=== PATIENT | female | born 1970 | race Caucasian/White ===

== ENCOUNTER → 2016-09-03 | Outpatient (CLI) | payer MEDICAID ==
--- NOTE | 2016-09-04 09:49 | MM ---
Reason for exam: screening (asymptomatic). Last mammogram was performed 1 year and 3 months ago. History: Patient had first child at age 36. Took hormonal contraceptives for 10 years beginning at age 20. Physical Findings: A clinical breast exam by your physician is recommended on an annual basis and results should be correlated with mammographic findings. MG 3D Screening Mammo W/Cad Bilateral CC and MLO view(s) were taken. Prior study comparison: June 14, 2015, bilateral MG screening mammo w CAD. The breast tissue is extremely dense which could obscure a lesion on mammography. No significant changes when compared with prior studies. ASSESSMENT: Benign, BI-RAD 2 RECOMMENDATION: Routine screening mammogram of both breasts in 1 year.
== END ==
LOC: RADMAMWWP 07:26
PROVIDERS: ATTEND Obstetrics & Gynecology
DX: Z12.31 Encounter for screening mammogram for malignant neoplasm of breast (principal)
CPT/HCPCS: 77063; G0202

== ENCOUNTER → 2017-04-25 | Outpatient (CLI) | payer MEDICAID ==
--- NOTE | 2017-04-25 09:20 | XR ---
EXAMINATION TYPE: XR cervical spine comp DATE OF EXAM: 04/25/2017 COMPARISON: NONE HISTORY: Chronic neck pain TECHNIQUE: Four views are submitted. FINDINGS: The odontoid is intact. There are no compression deformities. The prevertebral soft tissue structur es are within normal limits. There is an anterolisthesis of C4 on C5 of 2 mm. There is multilevel mi ld degenerative disc disease and facet arthropathy. IMPRESSION: 1. Multilevel mild degenerative disc disease with anterolisthesis of C4 on C5 by approximately 2 mm. 2. Multilevel facet arthropathy. Correlate with MRI.
== END | disposition home or self-care (01) ==
LOC: RADXRMAIN 08:34
PROVIDERS: ATTEND Internal Medicine Critical Care Medicine
DX: M50.30 Other cervical disc degeneration, unspecified cervical region (principal); M43.12 Spondylolisthesis, cervical region; M46.92 Unspecified inflammatory spondylopathy, cervical region
CPT/HCPCS: 72050

== ENCOUNTER → 2017-04-26 | Outpatient (CLI) | payer MEDICAID ==
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
== END | disposition home or self-care (01) ==
LOC: RADMRIMAIN 15:35
PROVIDERS: ATTEND Internal Medicine Critical Care Medicine
DX: M50.30 Other cervical disc degeneration, unspecified cervical region (principal)
CPT/HCPCS: 72156; A9581

== ENCOUNTER → 2018-08-14 | Outpatient (CLI) | payer MEDICAID ==
--- NOTE | 2018-08-15 12:38 | MM ---
Reason for exam: screening (asymptomatic). Last mammogram was performed 1 year and 11 months ago. History: Patient had first child at age 36. Took hormonal contraceptives for 10 years beginning at age 20. Physical Findings: A clinical breast exam by your physician is recommended on an annual basis and results should be correlated with mammographic findings. MG 3D Screening Mammo W/Cad Bilateral CC and MLO view(s) were taken. Prior study comparison: September 03, 2016, bilateral MG 3d screening mammo w/cad. June 14, 2015, bilateral MG screening mammo w CAD. The breast tissue is heterogeneously dense. This may lower the sensitivity of mammography. There is no discrete abnormality. No significant changes when compared with prior studies. ASSESSMENT: Negative, BI-RAD 1 RECOMMENDATION: Routine screening mammogram of both breasts in 1 year.
== END | disposition home or self-care (01) ==
LOC: RADMAMWWP 07:56
PROVIDERS: ATTEND Internal Medicine Critical Care Medicine
DX: Z12.31 Encounter for screening mammogram for malignant neoplasm of breast (principal)
CPT/HCPCS: 77063; 77067

== ENCOUNTER → 2018-08-27 | Outpatient (CLI) | payer MEDICAID ==
[2018-08-27 08:50] VITALS: BP 121/79; PULSE 88; RESP 18; TEMP 98.4; BMI 21.1
--- NOTE | 2018-08-27 09:16 | P.HPOB ---
History of Present Illness H&P Date: 08/27/18 Chief Complaint: The patient is here for her routine gynecologic exam. This is a 48-year-old with an LMP of 08/09/2018. The patient is here to establish with this office. She is without gynecologic complaints. It armand been about 2 years since her last pelvic exam. Menses a regular every 24 days typically lasting 6 or 7 days. She is using condoms for control and is not interested in any other form of control at this time. Review of Systems The patient's weight has been stable over the last year. She denies respiratory, cardiac, or G.I. problems. 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 History of Any Multi-Drug Resistant Organisms: None Reported Past Surgical History: Section Additional Past Surgical History / Comment(s): [place] teeth removed. 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 - Past Family History Brother(s) Family Medical History: Diabetes Mellitus Grandmother Family Medical History: Dementia Medications and Allergies Home Medications Medication Instructions Recorded Confirmed Type Acetaminophen Tab [Tylenol Tab] 500 mg PO Q6H 08/27/18 08/27/18 History Cholecalciferol (Vitamin D3) 2,000 unit PO DAILY 08/27/18 08/27/18 History [Vitamin D3] Ibuprofen [Motrin Ib] 200 mg PO PRN 08/27/18 History Multivit with Calcium,Iron,Min 1 each PO DAILY 08/27/18 08/27/18 History [Women's Multivitamin] Allergies Allergy/AdvReac Type Severity Reaction Status Date / Time azithromycin [From Zithromax] AdvReac Severe rash,vomiti Unverified 08/27/18 08:42 ng terbutaline AdvReac Severe rash,vomiti Unverified 08/27/18 08:42 ng,hives Exam Vital Signs Temp Pulse Resp BP Pulse Ox 08/27/18 08:46 98.4 F 88 18 121/79 100 Intake and Output 08/26/18 08/27/18 08/27/18 22:59 06:59 14:59 Other: Weight 48.988 kg Height 5'0", weight 108 pounds, BMI 21.1. This is a well-developed well-nourished white female who is alert and oriented times 3 in no acute distress. HEENT: Within normal limits. NECK: Supple without mass or thyromegaly. CHEST AND LUNGS: Clear to auscultation. HEART: Regular rate and rhythm. BREASTS: Are without mass or discharge. AXILLARY EXAM: Negative for adenopathy. BACK: Negative for CVA tenderness. ABDOMEN: Soft, nontender, without palpable masses. PELVIC EXAM: Normal external genitalia. Cervix and vagina appear normal. The cervix appears nulliparous. There is no unusual discharge. There is no evidence of prolapse. The uterus is midposition, nongravid size and nontender. There are no palpable adnexal masses or tenderness. RECTAL EXAM: negative for mass or tenderness and is negative for occult blood. EXTREMITIES: Nontender. IMPRESSION: 1. 48-year-old female with normal gynecologic exam using condoms for control. PLAN: 1. Pap smear was performed. 2. Self breast awareness was discussed with the patient. 3. Screening mammogram was done on 08/14/18 and was benign. She will repeat this in one to 2 years 4. Osteoporosis prevention was discussed. I have stressed the importance of adequate calcium, vitamin D and regular exercise. Recommended amounts of calcium and vitamin D were also discussed. 5. She was advised to return in one year for her annual well woman exam.
--- NOTE | 2018-09-02 12:18 | P.PN ---
Progress Note - Text Progress Note Date: 09/02/18 OUTPATIENT FOLLOW-UP NOTE TEST(S)/RESULTS: negative Pap smear on 08/27/2018. METHOD OF NOTIFICATION: the patient was notified by phone. PATIENT COMMENTS: the patient is happy to hear this result. DIAGNOSIS: negative Pap smear DISCUSSION: PLAN: She was advised to return in one year for her annual well woman exam.
== END | disposition home or self-care (01) ==
LOC: WWCWWP 08:32
PROVIDERS: ATTEND Obstetrics & Gynecology
DX: Z53.9 Procedure and treatment not carried out, unspecified reason (principal)

== ENCOUNTER → 2019-11-25 | Outpatient (CLI) | payer BC, MEDICAID ==
[2019-11-25 11:04] LABS: Basophils # (A) 0.1 k/uL (0-0.2); Basophils % (A) 1 %; Eosinophils # (A) 0.3 k/uL (0-0.7); Eosinophils % (A) 5 %; HCT 41.3 % (34.0-46.0); HGB 13.1 gm/dL (11.4-16.0); Lymphocytes # (A) 1.7 k/uL (1.0-4.8); Lymphocytes % (A) 30 %; MCH 29.2 pg (25.0-35.0); MCHC 31.7 g/dL (31.0-37.0); MCV 92.1 fL (80.0-100.0); Mean Platelet Volume 8.6; Monocytes # (A) 0.3 k/uL (0-1.0); Monocytes % (A) 5 %; Neutrophils # (A) 3.2 k/uL (1.3-7.7); Neutrophils % (A) 57 %; Platelet Count 236 k/uL (150-450); RBC 4.49 m/uL (3.80-5.40); RDW 11.9 % (11.5-15.5); WBC 5.6 k/uL (3.8-10.6)
[2019-11-25 16:50] LABS: % Iron Saturation 15.27 (12.00-45.00); African American GFR (CKD) 88.2 (60.0-200.0); Albumin 4.5 g/dL (3.80-4.90); Albumin/Globulin Ratio 1.88 (1.60-3.17); Anion Gap 7.4 mmol/L (4.00-12.00); BUN/Creat Ratio 16.67 Ratio (12.00-20.00); Calcium 9.4 mg/dL (8.7-10.3); Carbon Dioxide 25.6 mmol/L (21.6-31.8); Chol/HDL Ratio 2.41; Globulin 2.4 g/dL (1.6-3.3); LDL Cholesterol,Calculated 71.8 mg/dL (0.0-131.0); Non-African American GFR(CKD) 76.1 (60.0-200.0); Potassium 4.6 mmol/L (3.5-5.5); Total Bilirubin 0.3 mg/dL (0.2-1.2); Total Protein 6.9 g/dL (6.2-8.2); VLDL Calculation 14.2 mg/dL (5.00-40.00)
[2019-11-25 16:57] LABS: T4, Free (Free Thyroxine) 1.1 ng/dL (0.80-1.80)
== END | disposition home or self-care (01) ==
LOC: LABWHC1 09:43
PROVIDERS: ATTEND Internal Medicine Critical Care Medicine
DX: Z00.00 Encounter for general adult medical examination without abnormal findings (principal); R53.83 Other fatigue; E55.9 Vitamin D deficiency, unspecified
CPT/HCPCS: 36415; 80053; 80061; 82306; 83540; 83550; 84439; 84443; 85025

== ENCOUNTER → 2020-03-08 | Outpatient (CLI) | payer BC ==
--- NOTE | 2020-03-09 08:44 | MM ---
Reason for exam: screening (asymptomatic). Last mammogram was performed 1 year and 7 months ago. History: Patient had first child at age 36. Took hormonal contraceptives for 10 years beginning at age 20. Physical Findings: A clinical breast exam by your physician is recommended on an annual basis and results should be correlated with mammographic findings. MG 3D Screening Mammo W/Cad Bilateral CC and MLO view(s) were taken. Prior study comparison: August 14, 2018, bilateral MG 3d screening mammo w/cad. September 03, 2016, bilateral MG 3d screening mammo w/cad. The breast tissue is extremely dense which could obscure a lesion on mammography. No significant changes when compared with prior studies. ASSESSMENT: Negative, BI-RAD 1 RECOMMENDATION: Routine screening mammogram of both breasts in 1 year. Patient should continue monthly self breast exams. A negative report should not preclude additional follow up of suspicious palpable abnormalities.
== END | disposition home or self-care (01) ==
LOC: RADMAMWWP 07:14
PROVIDERS: ATTEND Internal Medicine Critical Care Medicine
DX: Z12.31 Encounter for screening mammogram for malignant neoplasm of breast (principal)
CPT/HCPCS: 77063; 77067

== ENCOUNTER → 2020-06-08 | Outpatient (CLI) | payer OTHER ==
--- NOTE | 2020-06-08 13:30 | XR ---
Right humerus and right shoulder HISTORY: Pain, trauma 2 views of the right humerus, 3 views of the right shoulder. Bone mineralization, joint spaces and alignment are maintained. IMPRESSION: No fracture or dislocation.
--- NOTE | 2020-06-08 14:30 | XR ---
Cervical spine HISTORY: Pain, trauma 5 views of the cervical spine, correlation prior exam 04/25/2017 Facet arthropathy changes are present. No evident foraminal encroachment. Cervical vertebral bodies s how preserved height, minimal retrolisthesis grade 1 C2-3, C3-4. Prevertebral soft tissues are normal . Disc spaces are maintained. IMPRESSION: No acute fracture or subluxation. Facet arthropathy.
== END | disposition home or self-care (01) ==
LOC: RADXRMAIN 12:51
PROVIDERS: ATTEND Emergency Medicine
DX: M47.812 Spondylosis without myelopathy or radiculopathy, cervical region (principal); S43.401A Unspecified sprain of right shoulder joint, initial encounter; S40.021A Contusion of right upper arm, initial encounter
CPT/HCPCS: 72050

== ENCOUNTER → 2020-06-16 | Outpatient (CLI) | payer OTHER ==
--- NOTE | 2020-06-17 08:16 | MR ---
EXAMINATION TYPE: MR shoulder RT wo con DATE OF EXAM: 06/16/2020 COMPARISON: Radiographs 06/08/2020 HISTORY: 50 year-old female right shoulder pain, strain TECHNIQUE: Multiplanar, multisequence imaging of the right shoulder is performed without contrast. FINDINGS: Minimal intermediate signal within the intracapsular portion of the long head biceps tendon may refle ct mild tendinosis. The extracapsular portion remains appropriately situated along the bicipital groo ve with minimal tenosynovial fluid likely communicating with the shoulder joint. The subscapularis tendon is intact. Mild capsular hypertrophy at the acromioclavicular joint without significant mass effect onto the und erlying cuff. Mild effusion within the subacromial/subdeltoid bursa. There is superficial bursal sided fraying of the supraspinatus tendon along with shallow articular si ded tear anteriorly measuring 8 x 6 mm, sagittal image 22 and coronal image 13. The infraspinatus tendon remains intact. No atrophy of the rotator cuff musculature. Some degenerative signal within the superior labrum and blunting of the posterior labrum. No para lab ral cyst. No significant glenohumeral joint effusion. The glenohumeral joint itself appears intact. No Hill-Sachs deformity or os acromiale. Some mild patchy red marrow hyperplasia is noted. No suspici ous bone marrow replacement. IMPRESSION: 1. Some bursal sided fraying of the supraspinatal tendon. Additional shallow articular sided tear of the anterior supraspinatus tendon measuring 8 x 6 mm. No high-grade partial or full-thickness rotator cuff tear at this time. 2. Mild subacromial/subdeltoid bursal effusion/bursitis. 3. There seems to be some degenerative signal within the superior labrum and some blunting of the pos terior labrum. A subtle labral tear is difficult to exclude. No paralabral cyst. If concern for apryl l pathology, MR arthrogram may be considered.
== END | disposition home or self-care (01) ==
LOC: RADMRIMAIN 08:38
PROVIDERS: ATTEND Emergency Medicine
DX: M75.101 Unspecified rotator cuff tear or rupture of right shoulder, not specified as traumatic (principal); S43.401A Unspecified sprain of right shoulder joint, initial encounter

== ENCOUNTER → 2020-12-20 | Outpatient (CLI) | payer BC ==
[2020-12-20 11:07] LABS: Basophils # (A) 0.07 X 10*3/uL (0.00-0.10); Basophils % (A) 1.2 %; Eosinophils # (A) 0.34 X 10*3/uL (0.04-0.35); HCT 38.5 % (37.2-46.3); HGB 12.5 g/dL (12.0-15.0); Lymphocytes % (A) 30.2 %; MCHC 32.5 g/dL (32.0-37.0); MCV 92.5 fL (80.0-97.0); Mean Platelet Volume 11.6 fL (9.5-12.2); Monocytes # (A) 0.44 X 10*3/uL (0.20-1.00); Monocytes % (A) 7.8 %; Neutrophils # (A) 3.07 X 10*3/uL (1.80-7.70); Neutrophils % (A) 54.6 %; Platelet Count 208 X 10*3/uL (140-440); RBC 4.16 X 10*6/uL (4.10-5.20); RDW 12.4 % (11.5-14.5); WBC 5.63 X 10*3/uL (4.50-10.00)
[2020-12-20 12:22] LABS: Albumin 4.4 g/dL (3.80-4.90); Albumin/Globulin Ratio 1.69 (1.60-3.17); Anion Gap 7.7 mmol/L (4.00-12.00); Calcium 9.5 mg/dL (8.7-10.3); Carbon Dioxide 24.3 mmol/L (21.6-31.8); Chol/HDL Ratio 2.44; Globulin 2.6 g/dL (1.6-3.3); LDL Cholesterol,Calculated 72.4 mg/dL (0.0-131.0); Non-African American GFR(CKD) 87.2 (60.0-200.0); Potassium 4.1 mmol/L (3.5-5.5); Total Bilirubin 0.5 mg/dL (0.2-1.2); VLDL Calculation 19.6 mg/dL (5.00-40.00)
[2020-12-20 12:29] LABS: T4, Free (Free Thyroxine) 1.2 ng/dL (0.80-1.80)
[2020-12-20 14:53] LABS: Hemoglobin A1C 5.5 % (4.0-6.0)
== END | disposition home or self-care (01) ==
LOC: LABWHC1 07:07
PROVIDERS: ATTEND Internal Medicine Critical Care Medicine
DX: Z00.00 Encounter for general adult medical examination without abnormal findings (principal); K57.30 Diverticulosis of large intestine without perforation or abscess without bleeding; E55.9 Vitamin D deficiency, unspecified
CPT/HCPCS: 36415; 80053; 80061; 82306; 83036; 84439; 84443; 85025

== ENCOUNTER → 2021-04-27 | Outpatient (CLI) | payer BC ==
--- NOTE | 2021-05-01 11:42 | MM ---
Reason for exam: screening (asymptomatic). Last mammogram was performed 1 year and 2 months ago. History: Patient had first child at age 36. Took hormonal contraceptives for 10 years beginning at age 20. Physical Findings: A clinical breast exam by your physician is recommended on an annual basis and results should be correlated with mammographic findings. MG 3D Screening Mammo W/Cad Bilateral CC and MLO view(s) were taken. Prior study comparison: March 08, 2020, bilateral MG 3d screening mammo w/cad. August 14, 2018, bilateral MG 3d screening mammo w/cad. The breast tissue is heterogeneously dense. This may lower the sensitivity of mammography. No significant changes when compared with prior studies. ASSESSMENT: Negative, BI-RAD 1 RECOMMENDATION: Routine screening mammogram of both breasts in 1 year. Patient should continue monthly self breast exams. A negative report should not preclude additional follow up of suspicious palpable abnormalities.
== END | disposition home or self-care (01) ==
LOC: RADMAMWWP 07:00
PROVIDERS: ATTEND Internal Medicine Critical Care Medicine
DX: Z12.31 Encounter for screening mammogram for malignant neoplasm of breast (principal)
CPT/HCPCS: 77063; 77067

== ENCOUNTER → 2022-01-03 | Outpatient (CLI) | payer BC ==
[2022-01-03 10:30] LABS: Basophils # (A) 0.04 X 10*3/uL (0.00-0.10); Basophils % (A) 1.1 %; Eosinophils # (A) 0.09 X 10*3/uL (0.04-0.35); Eosinophils % (A) 2.5 %; Immature Grans, Automated 0.3 %; Lymphocytes # (A) 0.43 X 10*3/uL (0.90-5.00); MCH 29.9 pg (27.0-32.0); MCHC 33.3 g/dL (32.0-37.0); MCV 89.6 fL (80.0-97.0); Mean Platelet Volume 11.1 fL (9.5-12.2); Monocytes # (A) 0.34 X 10*3/uL (0.20-1.00); Monocytes % (A) 9.5 %; NRBC Per 100 WBC 0 /100 WBCS (0.0-0.0); Neutrophils # (A) 2.66 X 10*3/uL (1.80-7.70); Neutrophils % (A) 74.6 %; Platelet Count 187 X 10*3/uL (140-440); RBC 4.02 X 10*6/uL (4.10-5.20); RDW 12.1 % (11.5-14.5); WBC 3.57 X 10*3/uL (4.50-10.00)
[2022-01-03 11:16] LABS: ALT 33 U/L (8-44); AST 44 U/L (13-35); African American GFR (CKD) 91.7 (60.0-200.0); Albumin 4.6 g/dL (3.8-4.9); Alkaline Phosphatase 80 U/L (41-126); BUN/Creat Ratio 15.31 Ratio (12.00-20.00); Blood Urea Nitrogen 13.2 mg/dL (9.0-27.0); Calcium 9.2 mg/dL (8.7-10.3); Carbon Dioxide 25.8 mmol/L (20.0-27.5); Chloride 103 mmol/L (96-109); Chol/HDL Ratio 2.19 Ratio; Globulin 2.4 g/dL (1.6-3.3); Glucose 105 mg/dL (70-110); LDL Cholesterol,Calculated 68.3 mg/dL (0.0-131.0); Non-African American GFR(CKD) 79.1 (60.0-200.0); Potassium 4.3 mmol/L (3.5-5.5); Sodium 139 mmol/L (135-145); VLDL Calculation 12.84 mg/dL (5.00-40.00)
== END | disposition home or self-care (01) ==
LOC: LABWHC1 07:33
PROVIDERS: ATTEND Internal Medicine Critical Care Medicine
DX: Z00.00 Encounter for general adult medical examination without abnormal findings (principal); E55.9 Vitamin D deficiency, unspecified; K55.9 Vascular disorder of intestine, unspecified; M53.81 Other specified dorsopathies, occipito-atlanto-axial region
CPT/HCPCS: 36415; 80053; 80061; 82306; 83036; 84439; 84443; 85025

== ENCOUNTER → 2022-05-02 | Outpatient (CLI) | payer BC ==
--- NOTE | 2022-05-02 22:16 | MM ---
Reason for Exam: Screening (asymptomatic). Last screening mammogram was performed 12 month(s) ago. Patient History: Menarche at age 15. First Full-Term at age 36. Late child-bearing (after 30). Hormonal Contraceptives for 10 years from age 20 until age 30. Last menstrual period: 04/12/2022 Risk Values: Jennifer 5 year model risk: 1.3%. NCI Lifetime model risk: 12.1%. Prior Study Comparison: 08/14/2018 Bilateral Screening Mammogram, [facility]. 03/08/2020 Bilateral Screening Mammogram, [facility]. 04/27/2021 Bilateral Screening Mammogram, [facility]. Tissue Density: The breast tissue is extremely dense which could obscure a lesion on mammography. Findings: Analyzed By CAD. There is no suspicious group of microcalcifications or new suspicious mass in either breast. Overall Assessment: Negative, BI-RAD 1 Management: Screening Mammogram of both breasts in 1 year. 1. Patient should continue monthly self breast exams. 2. A clinical breast exam by your physician is recommended on an annual basis. 3. This exam should not preclude additional follow-up of suspicious palpable abnormalities. Electronically signed and approved by: Alix Hauser M.D. Radiologist
== END | disposition home or self-care (01) ==
LOC: RADMAMWWP 06:56
PROVIDERS: ATTEND Internal Medicine Critical Care Medicine
DX: Z12.31 Encounter for screening mammogram for malignant neoplasm of breast (principal)
CPT/HCPCS: 77063; 77067

== ENCOUNTER → 2023-01-21 | Outpatient (CLI) | payer BC ==
[2023-01-21 11:25] LABS: Basophils # (A) 0.06 X 10*3/uL (0.00-0.10); Eosinophils # (A) 0.24 X 10*3/uL (0.04-0.35); Eosinophils % (A) 4.2 %; HCT 39.8 % (37.2-46.3); HGB 13.1 d/dL (12.0-15.0); Lymphocytes # (A) 1.62 X 10*3/uL (0.90-5.00); Lymphocytes % (A) 28.3 %; MCHC 32.9 d/dL (32.0-37.0); MCV 91.1 FL (80.0-97.0); Mean Platelet Volume 11.3 FL (9.5-12.2); Monocytes # (A) 0.42 X 10*3/uL (0.20-1.00); Monocytes % (A) 7.3 %; NRBC Per 100 WBC 0 X 10*3/uL (0.00-0.01); Neutrophils # (A) 3.38 X 10*3/uL (1.80-7.70); Platelet Count 247 X 10*3/uL (140-440); RBC 4.37 X 10*6/uL (4.10-5.20); RDW 12.2 % (11.5-14.5); WBC 5.73 X 10*3/uL (4.50-10.00)
[2023-01-21 11:27] LABS: ALT 16 U/L (8-44); AST 18 U/L (13-35); Albumin 4.8 d/dL (3.8-4.9); Albumin/Globulin Ratio 1.85 Ratio (1.60-3.17); Alkaline Phosphatase 80 U/L (41-126); BUN/Creat Ratio 22.88 Ratio (12.00-20.00); Blood Urea Nitrogen 18.3 mg/dL (9.0-27.0); Calcium 9.4 mg/dL (8.7-10.3); Carbon Dioxide 24.3 mmol/L (21.6-31.8); Chloride 102 mmol/L (96-109); Chol/HDL Ratio 2.34 Ratio; Globulin 2.6 d/dL (1.6-3.3); Glucose 90 mg/dL (70-110); LDL Cholesterol,Calculated 82.8 mg/dL (0.0-131.0); Potassium 4.3 mmol/L (3.5-5.5); Sodium 139 mmol/L (135-145); T4, Free (Free Thyroxine) 1.06 ng/dL (0.80-1.80); Total Bilirubin 0.4 mg/dL (0.3-1.2); Total Protein 7.4 d/dL (6.2-8.2); VLDL Calculation 13.94 mg/dL (5.00-40.00)
== END | disposition home or self-care (01) ==
LOC: LABWHC1 07:04
PROVIDERS: ATTEND Internal Medicine Critical Care Medicine
DX: Z00.00 Encounter for general adult medical examination without abnormal findings (principal); K52.9 Noninfective gastroenteritis and colitis, unspecified; E55.9 Vitamin D deficiency, unspecified
CPT/HCPCS: 36415; 80053; 80061; 82306; 83036; 84439; 84443; 85025

== ENCOUNTER → 2023-05-28 | Outpatient (CLI) | payer BC ==
--- NOTE | 2023-05-28 22:27 | MM ---
Reason for Exam: Screening (asymptomatic). Last mammogram was performed 1 year(s) and 1 month(s) ago. Patient History: Menarche at age 15. First Full-Term at age 36. Late child-bearing (after 30). Hormonal Contraceptives for 10 years from age 20 until age 30. Last menstrual period: 05/17/2023 Risk Values: Jennifer 5 year model risk: 1.4%. NCI Lifetime model risk: 12.0%. Prior Study Comparison: 03/08/2020 Bilateral Screening Mammogram, [facility]. 04/27/2021 Bilateral Screening Mammogram, [facility]. 05/02/2022 Bilateral MG 3D screening mammo w/cad, [facility]. Tissue Density: The breast tissue is extremely dense which could obscure a lesion on mammography. Findings: Analyzed By CAD. There is no suspicious group of microcalcifications or new suspicious mass in either breast. Overall Assessment: Negative, BI-RAD 1 Management: Screening Mammogram of both breasts in 1 year. . Patient should continue monthly self-breast exams. A clinical breast exam by your physician is recommended on an annual basis. This exam should not preclude additional follow-up of suspicious palpable abnormalities. Note on Jennifer scores and lifetime risk: 1. A Jennifer score greater than 3% is considered moderate risk. If this is the case, consider specialist referral to assess eligibility for a risk reducing agent. 2. If overall lifetime risk for the development of breast cancer is 20% or higher, the patient may qualify for future screening with alternating mammogram and breast MRI. Electronically signed and approved by: Alix Hauser M.D. Radiologist
== END | disposition home or self-care (01) ==
LOC: RADMAMWWP 06:51
PROVIDERS: ATTEND Internal Medicine Critical Care Medicine
DX: Z12.31 Encounter for screening mammogram for malignant neoplasm of breast (principal)
CPT/HCPCS: 77063; 77067

== ENCOUNTER → 2024-07-01 | Outpatient (CLI) | payer BC ==
[2024-07-01 10:30] LABS: Basophils # (A) 0.06 X 10*3/uL (0.00-0.10); Basophils % (A) 1.2 %; HCT 38.4 % (37.2-46.3); HGB 12.7 g/dL (12.0-15.0); Lymphocytes # (A) 1.74 X 10*3/uL (0.90-5.00); Lymphocytes % (A) 35.2 %; MCH 30.2 pg (27.0-32.0); MCHC 33.1 g/dL (32.0-37.0); MCV 91.2 FL (80.0-97.0); Mean Platelet Volume 11.3 FL (9.5-12.2); Monocytes # (A) 0.38 X 10*3/uL (0.20-1.00); Monocytes % (A) 7.7 %; NRBC Per 100 WBC 0 X 10*3/uL (0.00-0.01); Neutrophils # (A) 2.56 X 10*3/uL (1.80-7.70); Neutrophils % (A) 51.7 %; Platelet Count 223 X 10*3/uL (140-440); RBC 4.21 X 10*6/uL (4.10-5.20); RDW 12.3 % (11.5-14.5); WBC 4.95 X 10*3/uL (4.50-10.00)
[2024-07-01 10:57] LABS: Chol/HDL Ratio 2.46 Ratio; LDL Cholesterol,Calculated 88.8 mg/dL (0.0-131.0); VLDL Calculation 18.58 mg/dL (5.00-40.00)
[2024-07-01 10:58] LABS: ALT 19 U/L (8-44); AST 22 U/L (13-35); Albumin 4.5 g/dL (3.8-4.9); Albumin/Globulin Ratio 1.61 Ratio (1.60-3.17); Alkaline Phosphatase 77 U/L (41-126); BUN/Creat Ratio 20.25 Ratio (12.00-20.00); Blood Urea Nitrogen 16.2 mg/dL (9.0-27.0); Calcium 9.7 mg/dL (8.7-10.3); Carbon Dioxide 27.1 mmol/L (21.6-31.8); Chloride 103 mmol/L (96-109); Globulin 2.8 g/dL (1.6-3.3); Glucose 91 mg/dL (70-110); Potassium 4.7 mmol/L (3.5-5.5); Sodium 141 mmol/L (135-145); T4, Free (Free Thyroxine) 1.16 ng/dL (0.80-1.80); Total Bilirubin 0.6 mg/dL (0.3-1.2); Total Protein 7.3 g/dL (6.2-8.2)
== END | disposition home or self-care (01) ==
LOC: LABWHC1 07:08
PROVIDERS: ATTEND Internal Medicine Critical Care Medicine
DX: Z00.00 Encounter for general adult medical examination without abnormal findings (principal); E55.9 Vitamin D deficiency, unspecified; M53.81 Other specified dorsopathies, occipito-atlanto-axial region
CPT/HCPCS: 36415; 80053; 80061; 82306; 83036; 84439; 84443; 85025

== ENCOUNTER → 2024-07-13 | Outpatient (CLI) | payer BC ==
--- NOTE | 2024-07-13 07:29 | MM ---
Reason for Exam: Screening (asymptomatic). Last mammogram was performed 1 year(s) and 1 month(s) ago. Patient History: Menarche at age 15. First Full-Term at age 36. Late child-bearing (after 30). Perimenopausal. Hormonal Contraceptives for 10 years from age 20 until age 30. Risk Values: Jennifer 5 year model risk: 1.5%. NCI Lifetime model risk: 11.8%. Prior Study Comparison: 04/27/2021 Bilateral Screening Mammogram, [facility]. 05/02/2022 Bilateral MG 3D screening mammo w/cad, [facility]. 05/28/2023 Bilateral MG 3D screening mammo w/cad, [facility]. Tissue Density: The breasts are extremely dense, which lowers the sensitivity of mammography. Findings: Analyzed By CAD. There is no suspicious group of microcalcifications or new suspicious mass in either breast. Overall Assessment: Benign, BI-RAD 2 Management: Screening Mammogram of both breasts in 1 year. . Patient should continue monthly self-breast exams. A clinical breast exam by your physician is recommended on an annual basis. This exam should not preclude additional follow-up of suspicious palpable abnormalities. Note on Jennifer scores and lifetime risk: 1. A Jennifer score greater than 3% is considered moderate risk. If this is the case, consider specialist referral to assess eligibility for a risk reducing agent. 2. If overall lifetime risk for the development of breast cancer is 20% or higher, the patient may qualify for future screening with alternating mammogram and breast MRI. [facility], , 07/13/2024 7:27 AM. Electronically signed and approved by: Hlolis Pagan M.D. Radiologis
== END | disposition home or self-care (01) ==
LOC: RADMAMWWP 06:49
PROVIDERS: ATTEND Internal Medicine Critical Care Medicine
DX: Z12.31 Encounter for screening mammogram for malignant neoplasm of breast (principal); R92.343 Mammographic extreme density, bilateral breasts; Z92.0 Personal history of contraception
CPT/HCPCS: 77063; 77067